=== PATIENT | female | born 2000 | race American Indian/Alaskan Native ===

== ENCOUNTER 2018-06-01 12:16 | Emergency (ER) | payer MEDICAID ==
--- NOTE | 2018-06-01 13:13 | EDM.PDOC ---
ED HPI GENERAL MEDICAL PROBLEM - General Chief Complaint: Upper Extremity Injury/Pain Stated Complaint: RT SHOULDER PAIN Time Seen by Provider: 06/01/18 13:05 Source of Information: Reports: Patient - History of Present Illness INITIAL COMMENTS - FREE TEXT/NARRATIVE: Patient was wrestling and fell on the right shoulder. Complains of pain and difficulty moving it,with nothing helping.All this happened last night. - Related Data Allergies Allergy/AdvReac Type Severity Reaction Status Date / Time Penicillins Allergy Swelling Verified 06/01/18 12:39 Home Meds: Home Meds NK [No Known Home Meds] 06/01/18 [History] Past Medical History Dermatologic History: Reports: Other (See Below) Other Dermatologic History: large blister/lesion inner right leg - Infectious Disease History Infectious Disease History: Reports: MRSA - Past Surgical History Dermatological Surgical History: Reports: Other (See Below) Social & Family History - Tobacco Use Smoking Status *Q: Current Every Day Smoker Years of Tobacco use: 5 Packs/Tins Daily: 0.5 - Caffeine Use Caffeine Use: Reports: Soda - Recreational Drug Use Recreational Drug Use: No Review of Systems - Review of Systems Review Of Systems: ROS reveals no pertinent complaints other than HPI. ED EXAM, GENERAL - Physical Exam Exam: See Below Free Text/Narrative:: No obvious swelling noted of the right shoulder, but the significant range of motion decrease. Tender to palpation and a positive impingement sign noted. Exam Limited By: No Limitations General Appearance: Alert Course - Vital Signs Text/Narrative:: X-ray looks negative to my interpretation Last Recorded V/S: Last Vital Signs Temp 97.9 F 06/01/18 12:41 Pulse Resp 17 06/01/18 12:41 BP 132/90 06/01/18 12:41 Pulse Ox 98 06/01/18 12:41 Departure - Departure Time of Disposition: 13:11 Disposition: Home, Self-Care 01 Clinical Impression: Sprain of shoulder - Discharge Information Referrals: PCP,None [Primary Care Provider] - - Problem List & Annotations (1) Sprain of shoulder SNOMED Code(s): 4524970 Code(s): S43.409A - UNSP SPRAIN OF UNSPECIFIED SHOULDER JOINT, INIT ENCNTR Status: Acute Current Visit: Yes Qualifiers: Encounter type: initial encounter Laterality: right - Problem List Review Problem List Initiated/Reviewed/Updated: Yes - Assessment/Plan Plan:
--- NOTE | 2018-06-03 11:17 | CR ---
INDICATION: Wrestling, hurt shoulder. RIGHT SHOULDER: Three views of the right shoulder with four images revealed no evidence of a fracture, dislocation, or other significant bone or joint abnormality. [facility]
== END 2018-06-01 13:28 | disposition home or self-care (01) ==
LOC: FB.ED 12:16
DX: S43.401A Unspecified sprain of right shoulder joint, initial encounter (principal); Z88.0 Allergy status to penicillin; W19.XXXA Unspecified fall, initial encounter
CPT/HCPCS: 73030-RT; 99283

== ENCOUNTER 2020-01-12 21:19 | Emergency (ER) | payer MEDICAID, OTHER ==
[2020-01-12] MEDS ORDERED: Ketorolac 60 MG/2 ML SDV IM ONE (21:21)
[2020-01-12] MEDS ORDERED: Lidocaine 2% Viscous Solution 15 ML Cup PO ONE (21:21)
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
== END 2020-01-12 21:53 | disposition home or self-care (01) ==
LOC: FB.ED 21:19
DX: T23.231A Burn of second degree of multiple right fingers (nail), not including thumb, initial encounter (principal); T31.0 Burns involving less than 10% of body surface; Z88.0 Allergy status to penicillin; X19.XXXA Contact with other heat and hot substances, initial encounter
CPT/HCPCS: 96372; 99283; A9270-GY; J1885

== ENCOUNTER 2020-06-25 17:09 | Emergency (ER) | payer MEDICAID, OTHER ==
[2020-06-25] MEDS ORDERED: Diphtheria,Pertussis(Acell),Tetanus Vaccine 0.5 ML SDV IM ONE (17:23)
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
== END 2020-06-25 17:35 | disposition home or self-care (01) ==
LOC: FB.ED 17:09
DX: S61.214A Laceration without foreign body of right ring finger without damage to nail, initial encounter (principal); S60.416A Abrasion of right little finger, initial encounter; Z88.0 Allergy status to penicillin; Z23 Encounter for immunization; W26.0XXA Contact with knife, initial encounter
CPT/HCPCS: 12001; 90471; 90715; 99282

== ENCOUNTER 2023-01-02 01:27 | Emergency (ER) | payer MEDICAID | END 2023-01-02 02:46 | disposition home or self-care (01) | LOC: FB.ED 01:27 | DX: S80.01XA Contusion of right knee, initial encounter (principal); Z88.0 Allergy status to penicillin; Z72.0 Tobacco use; W00.0XXA Fall on same level due to ice and snow, initial encounter | CPT/HCPCS: 73562-RT; 99283 ==

== ENCOUNTER 2025-06-23 14:07 | Emergency (ER) | payer SELFPAY | END 2025-06-23 18:15 | disposition home or self-care (01) | LOC: FB.ED 14:07 | DX: S93.401A Sprain of unspecified ligament of right ankle, initial encounter (principal); S05.12XA Contusion of eyeball and orbital tissues, left eye, initial encounter; S00.03XA Contusion of scalp, initial encounter; F17.210 Nicotine dependence, cigarettes, uncomplicated; K21.9 Gastro-esophageal reflux disease without esophagitis; Z88.0 Allergy status to penicillin; W10.8XXA Fall (on) (from) other stairs and steps, initial encounter; Y93.89 Activity, other specified | CPT/HCPCS: 70450; 70450-26; 72125; 72125-26; 73610-26-RT; 73610-RT; 99284; A9270-GY ==